=== PATIENT | male | born 2000 | race Two or more races ===

== ENCOUNTER 2022-11-04 11:11 | Emergency (ER) | payer OTHER ==
[~2022-11-04] VITALS: Ht 185.4 cm; Wt 116.1 kg
[2022-11-04 12:43] VITALS: BP 109/44; PULSE 53; RESP 14; TEMP 98.3; O2SAT 98
[2022-11-04] MEDS ORDERED: LIDOCAINE 1% HCL (LOCAL ANESTH.) INJ 20ML MDV IJ ONE (13:15)
== END 2022-11-04 13:39 | disposition home or self-care (01) ==
LOC: ER 11:11
DX: S61.411A Laceration without foreign body of right hand, initial encounter (principal); W26.0XXA Contact with knife, initial encounter; Y93.89 Activity, other specified; Y92.89 Other specified places as the place of occurrence of the external cause; Y99.8 Other external cause status
CPT/HCPCS: 12002; 99282; J2001

== ENCOUNTER 2024-10-05 07:42 | Inpatient (IN) | payer MEDICAID ==
[~2024-10-05] VITALS: Ht 185.4 cm; Wt 109.6 kg
--- NOTE | 2024-10-05 08:27 | ED.PDOC ---
History of Present Illness HPI Comments 24-year-old male came to the ER stating that he hit his head against a railing on the bus a week ago since then he has been having cough congestion dizziness nausea vomiting. His saturation on room air was 89% for which she was placed on 6 L oxygen which ryan to 95%. His blood sugar was 117. Denies any past medical surgical history. He does smoke cigarettes. Denies any other symptoms. Chief Complaint: Head Injury Time Seen by MD: 08:06 Primary Care Provider: NONE Reviewed Notes: Nurses Notes, Medications, Allergies Allergies: Coded Allergies: NO KNOWN ALLERGIES (Unverified , 11/04/22) Information Source: Patient Mode of Arrival: Ambulatory Severity: Moderate Timing: Days Duration: Since onset Past Medical History PAST MEDICAL HISTORY: Denies Surgical History: Denies all surgeries Family History Family History: Reviewed,noncontributory to illness Social History Smoker: Cigarettes Alcohol: Denies ETOH Use Drugs: Denies Drug Use Lives In: Home Constitutional: denies: chills, diaphoresis, fatigue, fever, malaise, sweats, weakness, others EENTM: denies: blurred vision, double vision, ear bleeding, ear discharge, ear drainage, ear pain, ear ringing, eye pain, eye redness, hearing loss, mouth pain, mouth swelling, nasal discharge, nose bleeding, nose congestion, nose pain, photophobia, tearing, throat pain, throat swelling, voice changes, others Respiratory: reports: cough; denies: hemoptysis, orthopnea, SOB at rest, shortness of breath, SOB with excertion, stridor, wheezing, others Cardiovascular: denies: chest pain, dizzy spells, diaphoresis, Dyspnea on exertion, edema, irregular heart beat, left arm pain, lightheadedness, palpitations, PND, syncope, others Gastrointestinal: reports: nausea, vomiting; denies: abdomen distended, abdominal pain, blood streaked bowels, constipated, diarrhea, dysphagia, difficulty swallowing, hematemesis, melena, poor appetite, poor fluid intake, rectal bleeding, rectal pain, others Genitourinary: denies: burning, dysuria, flank pain, frequency, hematuria, incontinence, penile discharge, penile sore, pain, testicle pain, testicle swelling, urgency, others Neurological: reports: dizziness; denies: fainting, headache, left sided numbness, left sided weakness, numbness, paresthesia, pre-existing deficit, right sided numbness, right sided weakness, seizure, speech problems, tingling, tremors, weakness, others Musculoskeletal: denies: back pain, gout, joint pain, joint swelling, muscle pain, muscle stiffness, neck pain, others Integumetry: denies: bruises, change in color, change in hair/nails, dryness, laceration, lesions, lumps, rash, wounds, others Allergic/Immunocompromised: denies: Difficulty Healing, Frequent Infections, Hives, Itching, others Hematologic/Lymphatic: denies: anemia, blood clots, easy bleeding, easy bruising, swollen glands, others Endocrine: denies: excessive hunger, excessive sweating, excessive thirst, excessive urination, flushing, intolerance to cold, intolerance to heat, unexplained weight gain, unexplained weight loss, others Psychiatric: denies: anxiety, bipolar disorder, depression, hopeless, panic disorder, schizophrenia, sleepless, suicidal, others Physical Exam General Appearance: Moderate Distress HEENT: Normal ENT Inspection, Pharynx Normal, TMs Normal Neck: Full Range of Motion, Non-Tender, Normal, Normal Inspection Respiratory: Other (Coarse breath sounds) Cardiovascular: No Edema, No JVD, No Murmur, No Gallop, Normal Peripheral Pulses, Regular Rate/Rhythm Breast Exam: Deferred Gastrointestinal: No Organomegaly, Non Tender, No Pulsatile Mass, Normal Bowel Sounds, Soft Genitalia: Deferred Pelvic: Deferred Rectal: Deferred Extremities: No calf tenderness, Normal capillary refill, Normal inspection, Normal range of motion, Non-tender, No pedal edema Musculoskeletal : Apperance: Normal Neurologic: Alert, surgical resident II-XII nml as Tested, No Motor Deficits, Normal Affect, Normal Mood, No Sensory Deficits Cerebellar Function: Normal Reflexes: Normal Skin: Dry, Normal Color, Warm Peripheral Pulses: 3+ Radial (R), 3+ Radial (L) Lymphatic: No Adenopathy Was a procedure done? Was a procedure done?: No Differential Dx Considerations may include: Pneumonitis Electrolyte imbalance X-Ray, Labs, Meds, VS Vital Signs Date Time Temp Pulse Resp B/P (MAP) Pulse Ox O2 Delivery O2 Flow Rate FiO2 10/05/24 09:04 84 22 93 Nasal Cannula* 2 28 10/05/24 08:46 98 16 98 Nasal Cannula 2.0 10/05/24 08:46 98.4 98 98 118/74 (89) 98 98.4 10/05/24 07:43 98.2 106 18 111/67 98.2 Lab Test 10/05/24 08:50 Range/Units White Blood Count 10.0 4.4-10.8 10^3/uL Red Blood Count 4.89 4.5-5.90 10^6/uL Hemoglobin 15.6 13.5-17.5 g/dL Hematocrit 43.8 41.0-53.0 % Mean Corpuscular Volume 89.5 80.0-100.0 fL Mean Corpuscular Hemoglobin 31.8 28.0-32.0 pg Mean Corpuscular Hemoglobin Concent 35.5 32.0-36.0 g/dL Red Cell Distribution Width 12.7 11.8-14.3 % Platelet Count 173 140-450 10^3/uL Mean Platelet Volume 8.7 6.9-10.8 fL Neutrophils (%) (Auto) 84.5 H 37.0-80.0 % Lymphocytes (%) (Auto) 6.8 L 10.0-50.0 % Monocytes (%) (Auto) 7.4 0.0-12.0 % Eosinophils (%) (Auto) 0.9 0.0-7.0 % Basophils (%) (Auto) 0.4 0.0-2.0 % Neutrophils # (Auto) 8.4 1.6-8.6 10 ^3/uL Lymphocytes # (Auto) 0.7 0.4-5.4 10 ^3/uL Monocytes # (Auto) 0.7 0-1.3 10 ^3/uL Eosinophils # (Auto) 0.1 0-0.8 10 ^3/uL Basophils # (Auto) 0 0-0.2 10 ^3/uL Nucleated Red Blood Cells 0.0 % Sodium Level 137 136-145 mmol/L Potassium Level 3.8 3.5-5.1 mmol/L Chloride Level 97 L 98-107 mmol/L Carbon Dioxide Level 30 20-31 mmol/L Anion Gap 10 5-15 Blood Urea Nitrogen 15 9-23 mg/dL Creatinine 1.42 H 0.700-1.30 mg/dL Glomerular Filtration Rate Calc 70 >90 mL/min BUN/Creatinine Ratio 10.6 10.0-20.0 Serum Glucose 116 H 74-106 mg/dL Calcium Level 9.1 8.7-10.4 mg/dL Current Medications Medications (Trade) Dose Ordered Sig/Capri Route Start Time Stop Time Status Last Admin Methylprednisolone Sodium Succinate (Solu Medrol) 125 mg ONCE ONCE IV 10/05/24 08:30 10/05/24 08:31 DC 10/05/24 09:01 Albuterol (Ventolin Medneb) 5 mg ONCE ONCE NEB 10/05/24 08:30 10/05/24 08:31 DC 10/05/24 08:56 Ipratropium [place] (Atrovent Medneb) 0.5 mg ONCE ONCE NEB 10/05/24 08:30 10/05/24 08:31 DC 10/05/24 08:56 Patient alert. Complaining of cough congestion dizziness nausea vomiting. Vitals stable. Answering questions. Placed on oxygen. Establish intravenous access. Was given steroid. Was given Rocephin. Was given azithromycin. Possible pneumonitis. Dizziness we will be addressed with CT scan of the head. Explained to the patient. Continue monitoring. [place] [address] Ph: [phone] DIAGNOSTIC IMAGING Diagnostic Imaging Report : [id number] Signed PATIENT: ROSENDO LUNA ACCT: [id number] UNIT: [id number] : 2000 LOC: ER ROOM / BED: / AGE / SEX: 24 / M ADM STATUS: REG ER SERVICE 6 ORDERING PHYSICIAN: TERI STRONG MD PROCEDURE(s): HWOCT - HEAD WITHOUT CONTRAST REASON: sob ORDER NUMBER(s): [id number], ACCESSION NUMBER(s): [id number] EXAM: CT HEAD WITHOUT CONTRAST INDICATION: sob TECHNIQUE: CT of the head without intravenous contrast. Radiation Dose : 1. Head: CT Dose: CTDI volume is 62.26 mGy. Dose-length product is 1226.84 mGy*cm The dose indicators for CT are the volume Computed Tomography (CT) Dose Index (CTDIvol) and the Dose Length Product (DLP), and are measured in units of mGy and mGy-cm, respectively. These indicators are not patient dose, but values generated from the CT scanner acquisition factors. The report includes radiation exposure data for exposures received during this examination. COMPARISON: None FINDINGS: There is no evidence of acute intracranial hemorrhage, extra-axial collection, mass effect, midline shift, herniation or hydrocephalus. The ventricles, sulci and cisterns are age appropriate. The james-white differentiation is intact. The visualized paranasal sinuses and mastoid air cells are clear. The surrounding soft tissues and osseous structures are unremarkable. IMPRESSION: No acute intracranial abnormality. Radiation optimization: All CT scans at this facility use at least one of these dose optimization techniques: automated exposure control mA and/or kV adjustment per patient size (includes targeted exams where dose is matched to clinical indication) or iterative reconstruction. ATED BY: DARRON FLORES MD DICTATED DATE/TIME: 10/05/24856 SIGNED BY: DARRON FLORES MD SIGNED DATE/TIME: 10/05/24856 CC: [place] [address] Ph: [phone] DIAGNOSTIC IMAGING Diagnostic Imaging Report : [id number] Signed PATIENT: ROSENDO LUNA ACCT: [id number] UNIT: [id number] : 2000 LOC: ER ROOM / BED: / AGE / SEX: 24 / M ADM STATUS: REG ER SERVICE 6 ORDERING PHYSICIAN: TERI STRONG MD PROCEDURE(s): CXRP - CHEST PORTABLE REASON: sob ORDER NUMBER(s): [id number], ACCESSION NUMBER(s): [id number] CHEST RADIOGRAPH Indication: sob Technique: Single frontal view of the chest was obtained COMPARISON: None FINDINGS: Lines and Tubes: None Lungs: Clear Pleura: No effusion. No pneumothorax. Cardiomediastinal contours: Unremarkable Bones: Unremarkable IMPRESSION: No acute disease. ATED BY: DARRON FLORES MD DICTATED DATE/TIME: 10/05/24858 SIGNED BY: DARRON FLORES MD SIGNED DATE/TIME: 10/05/24858 CC: Time of 1ST Reevaluation: 08:25 Reevaluation 1ST: Unchanged Patient Education/Counseling: Diagnosis, Treatment, Prognosis Family Education/Counseling: No Family Present SEPSIS Sepsis Screen Date sepsis recognized/suspect: Oct 05, 2024 Time Sepsis recognized/suspect: 751 Recent Procedure: No On Antibiotic Therapy: No Respiratory Rate >20: No Heart Rate >90: Yes Temp<36 C (96.8 F) or >38.3 C: No SBP <90 or MAP <65 mmHG: No New Acute Mental Status Change: No Is the patient on CPAP, BIPAP,: No Physician Orders Head Without Contrast (10/05/24 08:27) Chest Portable (10/05/24 08:27) Urinalysis (10/05/24 08:27) Sal[place] Lock (10/05/24 08:45) Vital Signs Date Time Temp Pulse Resp B/P (MAP) Pulse Ox O2 Delivery O2 Flow Rate FiO2 10/05/24 09:04 84 22 93 Nasal Cannula* 2 28 10/05/24 08:46 98 16 98 Nasal Cannula 2.0 10/05/24 08:46 98.4 98 98 118/74 (89) 98 98.4 10/05/24 07:43 98.2 106 18 111/67 98.2 Laboratory Tests Test 10/05/24 08:50 White Blood Count 10.0 10^3/uL (4.4-10.8) Medications Medications Dose Ordered Sig/Capri Route Start Time Stop Time Status Last Admin Dose Admin Albuterol 5 mg ONCE ONCE NEB 10/05/24 08:30 10/05/24 08:31 DC 10/05/24 08:56 Ipratropium [place] 0.5 mg ONCE ONCE NEB 10/05/24 08:30 10/05/24 08:31 DC 10/05/24 08:56 Methylprednisolone Sodium Succinate 125 mg ONCE ONCE IV 10/05/24 08:30 10/05/24 08:31 DC 10/05/24 09:01 Departure 1 Departure Time of Disposition: 08:26 Impression: Primary Impression: Pneumonitis Additional Impressions: Head injury Qualified Codes: S09.90XA - Unspecified injury of head, initial encounter Autonomic disorder Disposition: ADMITTED INPATIENT Admit to: Med Surg Condition: Guarded Critical Care Note Critical Care Time?: Yes (90 min-critical care time only) Critical care comment: Placed on oxygen Stability Stability form required: No Heart Score Heart Score: Heart Score Response (Comments) Value History N/A 0 EKG N/A 0 Age N/A 0 Risk Factors N/A 0 Troponin N/A 0 Total 0 I personally scribed for TERI STRONG MD ([email or web address]) on 10/05/24 at 09:40. Electronically submitted by Krystyna Rivas ([email or web address]). I personally scribed for TERI STRONG MD ([email or web address]) on 10/05/24 at 09:41. Electronically submitted by Krystyna Rivas ([email or web address]). TERI STRONG MD Oct 05, 2024 08:27
[2024-10-05] MEDS: ALBUTEROL SULF 2.5 MG/0.5ML(0.5%) NEB SOLN NEB ONE (08:56)
[2024-10-05] MEDS: IPRATROPIUM BROM 0.5 MG/2.5ML INH SOL NEB ONE (08:56)
--- NOTE | 2024-10-05 08:59 | DVH ---
EXAM: CT HEAD WITHOUT CONTRAST INDICATION: sob TECHNIQUE: CT of the head without intravenous contrast. Radiation Dose : 1. Head: CT Dose: CTDI volume is 62.26 mGy. Dose-length product is 1226.84 mGy*cm The dose indicators for CT are the volume Computed Tomography (CT) Dose Index (CTDIvol) and the Dose Length Product (DLP), and are measured in units of mGy and mGy-cm, respectively. These indicators are not patient dose, but values generated from the CT scanner acquisition factors. The report includes radiation exposure data for exposures received during this examination. COMPARISON: None FINDINGS: There is no evidence of acute intracranial hemorrhage, extra-axial collection, mass effect, midline s hift, herniation or hydrocephalus. The ventricles, sulci and cisterns are age appropriate. The james-white differentiation is intact. The visualized paranasal sinuses and mastoid air cells are clear. The surrounding soft tissues and osseous structures are unremarkable. IMPRESSION: No acute intracranial abnormality. Radiation optimization: All CT scans at this facility use at least one of these dose optimization cristy hniques: automated exposure control mA and/or kV adjustment per patient size (includes targeted exam s where dose is matched to clinical indication) or iterative reconstruction.
[2024-10-05 09:00] LABS: Hematocrit 43.8 % (41.0-53.0); Hemoglobin 15.6 g/dL (13.5-17.5); Mean Corpuscular Hemoglobin 31.8 pg (28.0-32.0); Mean Corpuscular Volume 89.5 fL (80.0-100.0); Nucleated Red Blood Cells % 0.0 %
[2024-10-05] MEDS: methylPREDNISolone SOD SUCC 125 MG/2 ML VL IV ONE (09:01)
--- NOTE | 2024-10-05 09:01 | DVH ---
CHEST RADIOGRAPH Indication: sob Technique: Single frontal view of the chest was obtained COMPARISON: None FINDINGS: Lines and Tubes: None Lungs: Clear Pleura: No effusion. No pneumothorax. Cardiomediastinal contours: Unremarkable Bones: Unremarkable IMPRESSION: No acute disease.
[2024-10-05 09:04] VITALS: PULSE 84; RESP 22; O2SAT 93
[2024-10-05 09:29] LABS: Potassium 3.8 mmol/L (3.5-5.1); Sodium 137 mmol/L (136-145)
[2024-10-05 09:30] LABS: Anion Gap 10 (5-15); Calcium 9.1 mg/dL (8.7-10.4); Carbon Dioxide 30 mmol/L (20-31)
[2024-10-05 09:35] LABS: BUN/Creatinine Ratio 10.6 (10.0-20.0); Blood Urea Nitrogen 15 mg/dL (9-23)
[2024-10-05 09:38] LABS: Chloride 97 mmol/L (98-107); Glucose 116 mg/dL (74-106)
--- NOTE | 2024-10-05 12:39 | DVHHP2 ---
History of Present Illness Reason for Visit: headache dizziness cough and weakness History of Present Illness 24-year-old male with no past medical or surgical history presents stating concern for a possible concussion. 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 He did not seek medical evaluation at the time and has not followed up since. Recently, he has been experiencing intermittent headaches, vomiting, difficulty concentrating, balance disturbances, and a throbbing/pulsing head sensation. He reports that he hasnt been the same since the injury. He also reports a cough for the past seven days with associated nasal congestion. On arrival to the ED, oxygen saturation was 89% on room air, which improved after being placed on 6 L nasal cannula. Chest X-ray was unremarkable. CT scan of the brain was negative for acute findings. He received albuterol treatment in the ED prior to admission. Laboratory workup revealed an unremarkable CBC, unremarkable CMP except for creatinine 1.42. Patient reports smoking cigarettes and cigars approximately once daily. He is active-duty . He denies illicit drug use. will admit for further workup Past Medical History See HPI above Past Surgical History See HPI above Family History Reviewed, non-contributory to the management of this case. Past Social History Patient does smoke cigar but denies drug or alcohol use or cigarette use Review of Systems Constitutional: No: Fever, Chills, Sweats, Weakness, Malaise, Other Eyes: No: Pain, Vision change, Conjunctivae inflammation, Eyelid inflammation, Other, Redness ENT: No: Ear pain, Ear discharge, Nose pain, Nose discharge, Nose congestion, M outh pain, Mouth swelling, Throat pain, Throat swelling, Other Respiratory: Cough, Shortness of breath; No: Dry, SOB with excertion, Wheezing, Hemoptysis, Pleuritic Pain, Sputum, Wheezing, Other Cardiovascular: No: Chest Pain, Palpitations, Orthopnea, Paroxysmal Noc. Dyspnea, Edema, Lt Headedness, Other Gastrointestinal: No: Nausea, Vomiting, Abdominal Pain, Diarrhea, Constipation, Melena, Hematochezia, Other Genitourinary: No Dysuria, No Frequency, No Incontinence, No Hematuria, No Retention, No Other Musculoskeletal: No: other, neck pain, shoulder pain, arm pain, back pain, hand pain, leg pain, foot pain Skin: No: Rash, Lesions, Jaundice, Bruising, Other Neurological: Other (Headache); No: Weakness, Numbness, Incoordination, Change in speech, Confusion, Seizures Allergies: Coded Allergies: NO KNOWN ALLERGIES (Unverified , 11/04/22) Exam Vital Signs Vital Signs Date Time Temp Pulse Resp B/P (MAP) Pulse Ox O2 Delivery O2 Flow Rate FiO2 10/05/24 09:04 84 22 93 Nasal Cannula* 2 28 10/05/24 08:46 98.4 118/74 (89) 98.4 General Appearance: Alert, Oriented X3, Cooperative, No acute distress HEENT: Atraumatic, PERRLA, EOMI, Mucous membr. moist/pink Respiratory: Normal air movement, Other (Diminished lung sounds throughout) Cardiovascular: Regular rate, Normal S1, Normal S2, No murmurs Abdominal: Normal bowel sounds, Soft, No tenderness, No hepatospenomegaly, No masses Extremities: No clubbing, No cyanosis, No edema, Normal pulses, No tenderness/swelling Skin: No rashes, No breakdown, No significant lesion Neuro: Other (Neuro nonfocal) Psych/Mental Status: Mental status NL, Mood NL Labs/Xrays CT scan of the brain unremarkable Chest x-ray unremarkable I reviewed labs, imaging CT scan abdomen pelvis, EKG and all diagnostic studies on this patient from ED records and the medical chart Labs Test 10/05/24 08:50 10/05/24 08:45 Range/Units White Blood Count 10.0 4.4-10.8 10^3/uL Red Blood Count 4.89 4.5-5.90 10^6/uL Hemoglobin 15.6 13.5-17.5 g/dL Hematocrit 43.8 41.0-53.0 % Mean Corpuscular Volume 89.5 80.0-100.0 fL Mean Corpuscular Hemoglobin 31.8 28.0-32.0 pg Mean Corpuscular Hemoglobin Concent 35.5 32.0-36.0 g/dL Red Cell Distribution Width 12.7 11.8-14.3 % Platelet Count 173 140-450 10^3/uL Mean Platelet Volume 8.7 6.9-10.8 fL Neutrophils (%) (Auto) 84.5 H 37.0-80.0 % Lymphocytes (%) (Auto) 6.8 L 10.0-50.0 % Monocytes (%) (Auto) 7.4 0.0-12.0 % Eosinophils (%) (Auto) 0.9 0.0-7.0 % Basophils (%) (Auto) 0.4 0.0-2.0 % Neutrophils # (Auto) 8.4 1.6-8.6 10 ^3/uL Lymphocytes # (Auto) 0.7 0.4-5.4 10 ^3/uL Monocytes # (Auto) 0.7 0-1.3 10 ^3/uL Eosinophils # (Auto) 0.1 0-0.8 10 ^3/uL Basophils # (Auto) 0 0-0.2 10 ^3/uL Nucleated Red Blood Cells 0.0 % Sodium Level 137 136-145 mmol/L Potassium Level 3.8 3.5-5.1 mmol/L Chloride Level 97 L 98-107 mmol/L Carbon Dioxide Level 30 20-31 mmol/L Anion Gap 10 5-15 Blood Urea Nitrogen 15 9-23 mg/dL Creatinine 1.42 H 0.700-1.30 mg/dL Glomerular Filtration Rate Calc 70 >90 mL/min BUN/Creatinine Ratio 10.6 10.0-20.0 Serum Glucose 116 H 74-106 mg/dL Calcium Level 9.1 8.7-10.4 mg/dL SEPSIS Sepsis Screen Date sepsis recognized/suspect: Oct 05, 2024 Time Sepsis recognized/suspect: 0752 Recent Procedure: No On Antibiotic Therapy: No Respiratory Rate >20: No Heart Rate >90: Yes Temp<36 C (96.8 F) or >38.3 C: No SBP <90 or MAP <65 mmHG: No New Acute Mental Status Change: No Is the patient on CPAP, BIPAP,: No Physician Orders Head Without Contrast (10/05/24 08:27) Chest Portable (10/05/24 08:27) Urinalysis (10/05/24 08:27) Saline Lock (10/05/24 08:45) Brain Head Wo Contrast (10/05/24 12:32) * Neurology Consult (10/05/24 12:32) Neuro Checks Q2hrs Q2HR (10/05/24 12:32) Admit (10/05/24 12:32) Allergies (10/05/24 12:32) Code Status (10/05/24 12:32) Sodium Chloride 0.9% (10/05/24 12:45) Ondansetron Hcl (Zofran) (10/05/24 12:45) Docusate Sodium Capsule (Colace Capsule) (10/05/24 12:45) Complete Blood Count (10/06/24 04:00) Comprehensive Metabolic Panel (10/06/24 04:00) Condition: Stable (10/05/24 12:32) BRP (10/05/24 12:32) Morphine Sulfate Injection (10/05/24 12:45) Sequential Compression Device (10/05/24 ) Nitroglycerin Sublingual (Ntrostat Subli (10/05/24 12:45) Stat Ekg For Chest Pain (10/05/24 12:32) Notify Of Changes From Base (10/05/24 12:32) Pick Up Worker For 24 Hours (10/05/24 12:32) Emergency Dysrhythmia Protocol (10/05/24 12:32) Rhythm Strips Once Every Shift (10/05/24 12:32) Oxygen By Nasal Cannula (10/05/24 12:32) D-Dimer (10/05/24 12:32) Nm Vq Scan (10/05/24 12:32) Abg W/ Co-Ox (10/05/24 12:32) Albuterol Medneb (Ventolin Medneb) (10/05/24 12:45) Ipratropium Medneb (Atrovent Medneb) (10/05/24 12:45) Cont Med Neb Intial Tx (10/05/24 12:32) Urine Sodium (10/05/24 12:32) Urine Creatinine (10/05/24 12:32) Ct Angio Chest Contrast (10/05/24 12:37) Vital Signs Date Time Temp Pulse Resp B/P (MAP) Pulse Ox O2 Delivery O2 Flow Rate FiO2 10/05/24 09:04 84 22 93 Nasal Cannula* 2 28 10/05/24 08:46 98 16 98 Nasal Cannula 2.0 10/05/24 08:46 98.4 98 98 118/74 (89) 98 98.4 10/05/24 07:43 98.2 106 18 111/67 98.2 Laboratory Tests Test 10/05/24 08:50 White Blood Count 10.0 10^3/uL (4.4-10.8) Medications Medications Dose Ordered Sig/Capri Route Start Time Stop Time Status Last Admin Dose Admin Albuterol 5 mg ONCE ONCE NEB 10/05/24 08:30 10/05/24 08:31 DC 10/05/24 08:56 5 MG Ipratropium [place] 0.5 mg ONCE ONCE NEB 10/05/24 08:30 10/05/24 08:31 DC 10/05/24 08:56 0.5 MG Methylprednisolone Sodium Succinate 125 mg ONCE ONCE IV 10/05/24 08:30 10/05/24 08:31 DC 10/05/24 09:01 125 MG Assessment/Plan Assessment/Plan 24-year-old male withHead injury with post-concussive symptoms and hypoxemia requiring further neurological evaluation and MRI of the brain. acute Head Injury with Post-Concussion Syndrome Order MRI brain without contrast fu results ordered Neurology consult for evaluation and management recommendations Neuro checks q4h Pain management with acetaminophen PRN and morphine; avoid NSAIDs until intracranial bleed definitively excluded Activity modification, avoid contact activities until cleared acute Hypoxemia cxr normal ordered ct angio fu results Continue supplemental O2 to maintain SpO2 > 94% Wean as tolerated Incentive spirometry Monitor for respiratory deterioration ordered solumedrol atc ordered albuterol/atrovent prn sob and atc ordered abg Acute Cough / Congestion possible viral bronchitis vs mild asthma exacerbation Continue albuterol inhaler PRN and atc Supportive care: hydration, rest, nasal saline spray Consider outpatient pulmonary function testing if symptoms persist ordered solumedrol atc ordered ceftriaxone and azithromax acute Elevated Creatinine possible mild LUIS vs baseline Monitor renal function daily Encourage oral hydration Avoid nephrotoxic agents ordered renal consult if no improvement CHRONIC PROBLEM LIST Tobacco use with cigars FEN / PPx Fluids: Encourage oral hydration; IV fluids Electrolytes: Monitor daily, replace as indicated Nutrition: Regular diet DVT Prophylaxis: Enoxaparin 40 mg SC daily (hold if contraindicated) GI Prophylaxis: protonix since no steriods Disposition: Admit for MRI brain, neurology evaluation, supplemental oxygen, and monitoring of neurological status. Discharge once stable, oxygen requirements resolved, and cleared by neurology. Plan discussed with: Patient My Orders Orders - RICCARDO MOLINA DNP Procedure Category Date Status Time Brain Head Wo Contrast MRI 10/05/24 Logged 12:32 * Neurology Consult CONS 10/05/24 Transmitted 12:32 Neuro Checks Q2hrs GAYATRI 10/05/24 In Process 12:32 Admit ADMIT 10/05/24 Transmitted 12:32 Allergies GAYATRI 10/05/24 In Process 12:32 Code Status CODE 10/05/24 Transmitted 12:32 Sodium Chloride 0.9% PHA 10/05/24 Logged 12:45 Ondansetron Hcl PHA 10/05/24 Logged (Zofran) 12:45 Docusate Sodium PHA 10/05/24 Logged Capsule (Colace 12:45 Complete Blood Count LAB 10/06/24 Verified 04:00 Comprehensive LAB 10/06/24 Verified Metabolic Panel 04:00 Condition: Stable GAYATRI 10/05/24 In Process 12:32 BRP GAYATRI 10/05/24 In Process 12:32 Morphine Sulfate PHA 10/05/24 Logged Injection 12:45 Sequential GAYATRI 10/05/24 In Process Compression Device Nitroglycerin PHA 10/05/24 Logged Sublingual (Ntrostat 12:45 Stat Ekg For Chest GAYATRI 10/05/24 In Process Pain 12:32 Notify Of Changes [facility] 10/05/24 In Process From Base 12:32 Pick Up Worker For [facility] 10/05/24 In Process 24 Hours 12:32 Emergency Dysrhythmia [facility] 10/05/24 In Process Protocol 12:32 Rhythm Strips Once [facility] 10/05/24 In Process Every Shift 12:32 Oxygen By Nasal RT 10/05/24 Transmitted Cannula 12:32 D-Dimer LAB 10/05/24 Logged 12:32 Nm Vq Scan NM 10/05/24 Logged 12:32 Abg W/ Co-Ox RT 10/05/24 Logged 12:32 Albuterol Medneb PHA 10/05/24 Logged (Ventolin Medneb) 12:45 Ipratropium Medneb PHA 10/05/24 Logged (Atrovent Medneb) 12:45 Cont Med Neb Intial Tx RT 10/05/24 Logged 12:32 Urine Sodium LAB 10/05/24 Logged 12:32 Urine Creatinine LAB 10/05/24 Logged 12:[address] 10/05/24 Logged Contrast 12:37 Date of Service: Oct 05, 2024 Billing Provider: RICCARDO MOLINA DNP Common Visit Codes: [id number] INP/OBS CARE (HIGH) RICCARDO MOLINA [facility] Oct 05, 2024 12:39
[2024-10-05 12:40] LABS: Urine Protein, UAD 1+ (Negative)
[2024-10-05] MEDS ORDERED: IPRATROPIUM BROM 0.5 MG/2.5ML INH SOL NEB PRN (12:45)
[2024-10-05] MEDS ORDERED: MORPHINE SULFATE INJ 2 MG/ml SYRG IV PRN (12:45)
[2024-10-05] MEDS ORDERED: ALBUTEROL SULF 2.5 MG/0.5ML(0.5%) NEB SOLN NEB PRN (12:45)
[2024-10-05] MEDS ORDERED: ONDANSETRON HCL 4 MG/2 ML VIAL IV PRN (12:45)
[2024-10-05] MEDS ORDERED: DOCUSATE SOD 100 MG CAP PO PRN (12:45)
[2024-10-05] MEDS: IOHEXOL 350 MG/ML 100ML IJ ONE (12:45)
[2024-10-05] MEDS ORDERED: NITROGLYCERIN 0.4 MG SL TAB SL PRN (12:45)
[2024-10-05] MEDS: SODIUM CHLORIDE 0.9% 1,000 ML IV SCH (12:45)
[2024-10-05 13:45] LABS: Base Excess 1.4 mmol/L (-2.0-3.0)
[2024-10-05 13:57] VITALS: BP 118/74; PULSE 84; RESP 18; TEMP 94.1; O2SAT 94
--- NOTE | 2024-10-05 13:58 | DVH ---
CTA Chest with intravenous contrast INDICATION: eval for pe COMPARISON: XY CHEST PORTABLE on DOS: 10/05/24 TECHNIQUE: Multidetector spiral CTA of the chest was performed of the chest with intravenous contrast . PULMONARY ANGIOGRAPHY PROTOCOL was utilized using a bolus-tracking technique centered on the main p ulmonary artery. Axial, coronal and sagittal multiplanar and MIP reformats were performed. CONTRAST: Type of contrast: Omni 350 Contrast injected: 100 ml Radiation dose : Chest: CTDI volume is 26 mGy. Dose-length product is 948 mGy*cm The dose indicators for CT are the volume computed Tomography (CT) dose Index (CTDIvol) and the dose Length product (DLP), and are measured in units of mGy and mGy-cm, respectively. These indicators are not patient dose, but values generated from the CT scanner acquisition factors. The report includes radiation exposure data for exposures received during this examination. Findings: Pulmonary artery: No pulmonary embolism Lower neck: Normal thyroid. Lungs: Patchy ground-glass opacities in the mid to lower lungs bilaterally. Heart/Vascular Structures: Normal heart size. No pericardial effusion. Lymph Nodes: Mediastinal and bilateral hilar lymphadenopathy. Pleura: No pleural effusion or significant pneumothorax. Musculoskeletal: No acute osseous abnormality. Soft tissues: Normal. Upper abdomen: Limited portions of the upper abdomen are unremarkable. IMPRESSION: 1. No pulmonary embolism. 2. Patchy ground-glass opacities in the mid to lower lungs bilaterally. Mediastinal and bilateral hi lar lymphadenopathy. Findings could be infectious / inflammatory. Consider sarcoidosis. Consider at ypical infection. Clinical correlation and continued follow-up is recommended. HS:Y
--- NOTE | 2024-10-05 14:09 | DVH ---
MR of the brain HISTORY: eval for acute headache s/p injury with dizziness and balanc Comparison: CT head done 10/05/2024 TECHNIQUE: MR was performed with a surface coil at 1.5 T magnet. Sagittal, axial and coronal T1 and T 2-weighted images were obtained. FINDINGS: No areas of restricted diffusion on diffusion-weighted images No areas of signal hyperintensity on FLAIR imaging sequences No areas of T2 star signal hypointensity on gradient echo images No hydrocephalus or midline shift No extra-axial fluid collections The orbits, paranasal sinuses, sella, and cerebellopontine angles are all unremarkable in appearance. There is some mucosal thickening or fluid in the left mastoid sinus air cells IMPRESSION: 1. No acute intracranial pathology. 2. There is some left mastoid sinus disease present.
[2024-10-05] MEDS: PANTOPRAZOLE 40 MG/10 ML VIAL INJ IV ONE (18:01)
[2024-10-05] MEDS: cefTRIAXone 1GM/50ML D5W 50 ML IV ONE (18:01)
[2024-10-05] MEDS: AZITHROMYCIN 500MG/ 250ML 250 ML IV ONE (18:16)
[2024-10-05 18:43] VITALS: PULSE 83; RESP 18; O2SAT 95
[2024-10-05] MEDS: ALBUTEROL SULF 2.5 MG/0.5ML(0.5%) NEB SOLN NEB PRN (18:43)
[2024-10-05] MEDS: IPRATROPIUM BROM 0.5 MG/2.5ML INH SOL NEB SCH (18:43)
[2024-10-05 18:47] LABS: COVID19 ANTIGEN SOFIA FIA NEGATIVE (NEGATIVE)
[2024-10-05 18:51] VITALS: PULSE 86; RESP 18; O2SAT 98
--- NOTE | 2024-10-05 21:24 | DVHINCON2 ---
Date of service: Oct 05, 2024 Referring Physician Yanique Reason for Consultation Acute headache dizziness and balance disturbance after head injury History of Present Illness 10/05/24 24-year-old male came to the ER stating that he hit his head against a railing on the bus a week ago since then he has been having cough congestion dizziness nausea vomiting. His saturation on room air was 89% for which she was placed on 6 L oxygen which ryan to 95%. His blood sugar was 117. Denies any past medical surgical history. He does smoke cigarettes. Denies any other symptoms. Chief Complaint: Head Injury Urinalysis, 10/05/2024: WBC: Two, urine leukocyte esterase: Negative ABG, 10/05/2024: Respiratory alkalosis CBC, 10/05/2024: Unremarkable BUN/CR, 10/05/2024: 15/1.42 GFR, 10/05/2024: 70 CT head, 10/05/2024: No acute intracranial abnormality. CTA chest, 10/05/2024: 1. No pulmonary embolism. 2. Patchy ground-glass opacities in the mid to lower lungs bilaterally. Mediastinal and bilateral hilar lymphadenopathy. Findings could be infectious / inflammatory. Consider sarcoidosis. Consider atypical infection. Clinical correlation and continued follow-up is recommended. MRI head, 10/05/2024: 1. No acute intracranial pathology. 2. There is some left mastoid sinus disease present Denies Denies all surgeries Reviewed,noncontributory to illness Smoker: Cigarettes Alcohol: Denies ETOH Use Drugs: Denies Drug Use Lives In: Home Allergies: Coded Allergies: NO KNOWN ALLERGIES (Unverified , 11/04/22) Current Medications Current Medications Medications (Trade) Dose Ordered Sig/Capri Route PRN Reason Start Time Stop Time Status Last Admin Sodium Chloride 1,000 ml @ 120 mls/hr Q8H20M IV 10/05/24 12:45 Ondansetron HCl (Zofran) 4 mg Q4HP PRN IV NAUSEA / VOMITING 10/05/24 12:45 Docusate Sodium (Colace Capsule) 100 mg BIDPRN PRN PO FOR CONSTIPATION 10/05/24 12:45 Morphine Sulfate 2 mg Q4HPRN PRN IV SEVERE PAIN (7-10 PAIN SCALE) 10/05/24 12:45 Nitroglycerin (Ntrostat Sublingual) 0.4 mg Q5MINP PRN SL FOR CHEST PAIN 10/05/24 12:45 Albuterol (Ventolin Medneb) 2.5 mg Q4HPRN PRN NEB SHORTNESS OF BREATH 10/05/24 12:45 10/05/24 17:58 DC Ipratropium [place] (Atrovent Medneb) 0.5 mg Q4HPRN PRN NEB SHORTNESS OF BREATH 10/05/24 12:45 10/05/24 17:58 DC Methylprednisolone Sodium Succinate (Solu Medrol) 40 mg Q8HR IV 10/05/24 22:00 Pantoprazole Sodium (Protonix) 40 mg DAILY IV 10/06/24 10:00 Albuterol (Ventolin Medneb) 2.5 mg Q4HPRN PRN NEB SHORTNESS OF BREATH 10/05/24 17:30 10/05/24 18:43 Ipratropium [place] (Atrovent Medneb) 0.5 mg Q4HR NEB 10/05/24 18:00 10/05/24 18:43 Ceftriaxone Sodium 50 ml @ 100 mls/hr DAILY@09 IV 10/06/24 09:00 Azithromycin 250 ml @ 125 mls/hr DAILY IV 10/06/24 10:00 Vital Signs Vital Signs Date Time Temp Pulse Resp B/P (MAP) Pulse Ox O2 Delivery O2 Flow Rate FiO2 10/05/24 20:12 98.1 89 20 107/61 (76) 95 98.1 10/05/24 18:43 Nasal Cannula* 2 28 Labs/Diagnostic Data Labs Test 10/05/24 17:35 10/05/24 13:07 10/05/24 12:13 10/05/24 08:50 Range/Units Influenza Type A Antigen Negative Negative Influenza Type B Antigen Negative Negative SARS-CoV-2 Antigen (Rapid) Negative NEGATIVE Blood Gas Specimen Type Arterial Blood Gas Sample Site Left radial Blood Gas Patient Temperature 37.0 Arterial Blood Date Drawn [id number] Arterial Blood pH 7.491 H 7.350-7.450 Arterial Blood Partial Pressure CO2 32.0 L 35.0-48.0 mmHg Arterial Blood Partial Pressure O2 69.2 L 83.0-108.0 mmHg Arterial Blood HCO3 23.9 21.0-28.0 mmol/L Arterial Blood Oxygen Saturation 94.1 94.0-98.0 % Arterial Blood Base Excess 1.4 -2.0-3.0 mmol/L Arterial Blood Oxyhemoglobin 92.7 L 94.0-98.0 % Arterial Blood Carboxyhemoglobin 0.9 0.5-1.5 % Arterial Blood Methemoglobin 0.6 0.0-1.5 % Atilio Test Yes Blood Gas Total Hemoglobin 15.30 13.5-17.5 g/dL Blood Gas Modality Room air FiO2 % 21.0 Blood Gas Comments D-Dimer, Quantitative 1.02 H 0.0-0.49 mg/L FEU White Blood Count 10.0 4.4-10.8 10^3/uL Red Blood Count 4.89 4.5-5.90 10^6/uL Hemoglobin 15.6 13.5-17.5 g/dL Hematocrit 43.8 41.0-53.0 % Mean Corpuscular Volume 89.5 80.0-100.0 fL Mean Corpuscular Hemoglobin 31.8 28.0-32.0 pg Mean Corpuscular Hemoglobin Concent 35.5 32.0-36.0 g/dL Red Cell Distribution Width 12.7 11.8-14.3 % Platelet Count 173 140-450 10^3/uL Mean Platelet Volume 8.7 6.9-10.8 fL Neutrophils (%) (Auto) 84.5 H 37.0-80.0 % Lymphocytes (%) (Auto) 6.8 L 10.0-50.0 % Monocytes (%) (Auto) 7.4 0.0-12.0 % Eosinophils (%) (Auto) 0.9 0.0-7.0 % Basophils (%) (Auto) 0.4 0.0-2.0 % Neutrophils # (Auto) 8.4 1.6-8.6 10 ^3/uL Lymphocytes # (Auto) 0.7 0.4-5.4 10 ^3/uL Monocytes # (Auto) 0.7 0-1.3 10 ^3/uL Eosinophils # (Auto) 0.1 0-0.8 10 ^3/uL Basophils # (Auto) 0 0-0.2 10 ^3/uL Nucleated Red Blood Cells 0.0 % Sodium Level 137 136-145 mmol/L Potassium Level 3.8 3.5-5.1 mmol/L Chloride Level 97 L 98-107 mmol/L Carbon Dioxide Level 30 20-31 mmol/L Anion Gap 10 5-15 Blood Urea Nitrogen 15 9-23 mg/dL Creatinine 1.42 H 0.700-1.30 mg/dL Glomerular Filtration Rate Calc 70 >90 mL/min BUN/Creatinine Ratio 10.6 10.0-20.0 Serum Glucose 116 H 74-106 mg/dL Calcium Level 9.1 8.7-10.4 mg/dL Test 10/05/24 08:45 Range/Units Urine Color Yellow Yellow Urine Clarity Clear Clear Urine pH 6.0 5.0-9.0 Urine Specific [place] 1.034 1.001-1.035 Urine Protein 1+ H Negative Urine Ketones 1+ H Negative Urine Blood 1+ H Negative /uL Urine Nitrite Negative Negative Urine Bilirubin Negative Negative Urine Urobilinogen Normal Negative mg/dL Urine Leukocyte Esterase Negative Negative /uL Urine RBC 12 0 - 3 /hpf Urine Microscopic WBC 2 0-3 /HPF Urine Squamous Epithelial Cells None seen <5 /hpf Urine Bacteria None seen None Seen /hpf Urine Mucus Few None Seen Urine Creatinine 439.90 H 30.0-125.0 mg/dL Urine Sodium < 10 L 40-220 mmol/L Urine Glucose Normal Normal mg/dL OBED RUGGIERO MD Oct 05, 2024 21:24
[2024-10-05 23:49] VITALS: BP 111/67; PULSE 72; RESP 20; TEMP 97.8; O2SAT 98
[2024-10-06] VITALS (23 sets, daily range): BP systolic 103–125; BP diastolic 49–73; PULSE 48–101; RESP 16–20; TEMP 97.1–98.1; O2SAT 91–100
[2024-10-06 06:11] LABS: Hematocrit 38.6 % (41.0-53.0); Hemoglobin 13.9 g/dL (13.5-17.5); Mean Corpuscular Hemoglobin 32.9 pg (28.0-32.0); Mean Corpuscular Volume 91.0 fL (80.0-100.0); Nucleated Red Blood Cells % 0.0 %
[2024-10-06 06:26] LABS: Albumin 4.3 g/dL (3.2-4.8); Alkaline Phosphatase 66 U/L (46-116); Anion Gap 9 (5-15); BUN/Creatinine Ratio 18.8 (10.0-20.0); Bilirubin, Direct 0.2 mg/dL (<0.3); Bilirubin, Total 0.6 mg/dL (0.2-1.0); Blood Urea Nitrogen 21 mg/dL (9-23); Calcium 8.9 mg/dL (8.7-10.4); Carbon Dioxide 28 mmol/L (20-31); Chloride 101 mmol/L (98-107); Potassium 3.9 mmol/L (3.5-5.1); Sodium 138 mmol/L (136-145); Total Protein 6.8 g/dL (5.7-8.2)
[2024-10-06 06:28] LABS: Alanine Aminotransferase < 9 U/L (7-40); Glucose 150 mg/dL (74-106)
[2024-10-06] MEDS: PANTOPRAZOLE 40 MG/10 ML VIAL INJ IV SCH (08:55)
[2024-10-06] MEDS: cefTRIAXone 1GM/50ML D5W 50 ML IV SCH (08:55)
[2024-10-06] MEDS: AZITHROMYCIN 500MG/ 250ML 250 ML IV SCH (10:22)
--- NOTE | 2024-10-06 12:01 | DVHPN2 ---
Reviewed: Care Plan, H&P, Labs, Medications, Previous Orders, Radiology Changes from previous H/P or p: No Changes Eyes: No Pain, No Vision change, No Conjunctivae inflammation, No Eyelid inflammation, No Other, No Redness ENT: No Ear pain, No Ear discharge, No Nose pain, No Nose discharge, No Nose congestion, No Mouth pain, No Mouth swelling, No Throat pain, No Throat swelling, No Other Cardiovascular: No Chest Pain, No Palpitations, No Orthopnea, No Paroxysmal Noc. Dyspnea, No Edema, No Lt Headedness, No Other Respiratory: Cough; No Dry; Shortness of breath; No SOB with excertion, No Wheezing, No Hemoptysis, No Pleuritic Pain, No Sputum, No Other Gastrointestinal: No Nausea, No Vomiting, No Abdominal Pain, No Diarrhea, No Constipation, No Melena, No Hematochezia, No Other Genitourinary: No Dysuria, No Frequency, No Incontinence, No Hematuria, No Retention, No Other Musculoskeletal: No other, No neck pain, No shoulder pain, No arm pain, No back pain, No hand pain, No leg pain, No foot pain Skin: No Rash, No Lesions, No Jaundice, No Bruising, No Other Objective Vitals Vital Signs Date Time Temp Pulse Resp B/P (MAP) Pulse Ox O2 Delivery O2 Flow Rate FiO2 10/06/24 09:59 49 16 98 10/06/24 09:00 97.4 125/69 (87) 97.4 10/06/24 06:29 Nasal Cannula 2.0 10/06/24 06:29 28 Intake/Output Intake and Output 10/06/24 07:00 Intake Total 0 ml Balance 0 ml Intake Oral 0 ml Medications Current Medications Medications Dose Ordered Sig/Capri Route Start Time Stop Time Status Last Admin Dose Admin Sodium Chloride 1,000 ml @ 120 mls/hr Q8H20M IV 10/05/24 12:45 Ondansetron HCl 4 mg Q4HP PRN IV 10/05/24 12:45 Docusate Sodium 100 mg BIDPRN PRN PO 10/05/24 12:45 Morphine Sulfate 2 mg Q4HPRN PRN IV 10/05/24 12:45 Nitroglycerin 0.4 mg Q5MINP PRN SL 10/05/24 12:45 Methylprednisolone Sodium Succinate 40 mg Q8HR IV 10/05/24 22:00 Pantoprazole Sodium 40 mg DAILY IV 10/06/24 10:00 10/06/24 08:55 40 MG Albuterol 2.5 mg Q4HPRN PRN NEB 10/05/24 17:30 10/06/24 09:58 2.5 MG Ipratropium [place] 0.5 mg Q4HR NEB 10/05/24 18:00 10/06/24 09:58 0.5 MG Ceftriaxone Sodium 50 ml @ 100 mls/hr DAILY@09 IV 10/06/24 09:00 10/06/24 08:55 100 MLS/HR Azithromycin 250 ml @ 125 mls/hr DAILY IV 10/06/24 10:00 10/06/24 10:22 125 MLS/HR Laboratory Results Laboratory Tests 10/06/24 05:32 Chemistry Test 10/06/24 05:32 Albumin 4.3 g/dL (3.2-4.8) Calcium Level 8.9 mg/dL (8.7-10.4) Total Protein 6.8 g/dL (5.7-8.2) Coagulation Test 10/05/24 12:13 D-Dimer, Quantitative 1.02 mg/L FEU (0.0-0.49) H LFT Test 10/06/24 05:32 Alanine Aminotransferase (ALT) < 9 U/L (7-40) Alkaline Phosphatase 66 U/L (46-116) Aspartate Amino Transferase (AST) 14 U/L (13-40) Direct Bilirubin 0.2 mg/dL (<0.3) Total Bilirubin 0.6 mg/dL (0.2-1.0) Urinalysis Test 10/05/24 08:45 Urine Color Yellow (Yellow) Urine Clarity Clear (Clear) Urine pH 6.0 (5.0-9.0) Urine Specific [place] 1.034 (1.001-1.035) Urine Protein 1+ (Negative) H Urine Ketones 1+ (Negative) H Urine Blood 1+ /uL (Negative) H Urine Nitrite Negative (Negative) Urine Bilirubin Negative (Negative) Urine Urobilinogen Normal mg/dL (Negative) Urine Leukocyte Esterase Negative /uL (Negative) Urine RBC 12 /hpf (0 - 3) Urine Microscopic WBC 2 /HPF (0-3) Urine Squamous Epithelial Cells None seen /hpf (<5) Urine Bacteria None seen /hpf (None Seen) Urine Mucus Few (None Seen) Urine Creatinine 439.90 mg/dL (30.0-125.0) H Urine Sodium < 10 mmol/L (40-220) L Urine Glucose Normal mg/dL (Normal) Blood Gas Results Test 10/05/24 13:07 Arterial Blood pH 7.491 (7.350-7.450) FiO2 % 21.0 Labs and/or images reviewed: Labs reviewed by me, Image(s) reviewed by me Assessment/Plan Assessment/Plan Acute headache status post blunt injury possibly secondary to concussion injury: CT head negative, MRI brain negative Acute bilateral community-acquired pneumonia Rocephin azithromycin [place] test negative Rapid Flu test negative Plan discussed with: Patient Date of Service: Oct 06, 2024 Billing Provider: ALTAF MCPHERSON MD Common Visit Codes: [id number] INP/OBS CARE(HIGH) ALTAF MCPHERSON MD Oct 06, 2024 12:01
[2024-10-06] MEDS ORDERED: SODIUM CHLORIDE 0.9% 1,000 ML IV SCH (13:00)
[2024-10-06] MEDS: methylPREDNISolone SOD SUCC 40 MG/ML VL IV SCH (13:58)
[2024-10-06] MEDS: SODIUM CHLORIDE 0.9% 1,000 ML IV SCH (14:11)
[2024-10-07 01:00] VITALS: BP 102/62; PULSE 79; RESP 20; TEMP 97.6; O2SAT 100
[2024-10-07] MEDS ORDERED: AZIT500T66 PO (08:23)
--- NOTE | 2024-10-07 08:24 | DVHPN2 ---
Reviewed: Care Plan, H&P, Labs, Medications, Previous Orders, Radiology Changes from previous H/P or p: No Changes Eyes: No Pain, No Vision change, No Conjunctivae inflammation, No Eyelid inflammation, No Other, No Redness ENT: No Ear pain, No Ear discharge, No Nose pain, No Nose discharge, No Nose congestion, No Mouth pain, No Mouth swelling, No Throat pain, No Throat swelling, No Other Cardiovascular: No Chest Pain, No Palpitations, No Orthopnea, No Paroxysmal Noc. Dyspnea, No Edema, No Lt Headedness, No Other Respiratory: Cough; No Dry; Shortness of breath; No SOB with excertion, No Wheezing, No Hemoptysis, No Pleuritic Pain, No Sputum, No Other Gastrointestinal: No Nausea, No Vomiting, No Abdominal Pain, No Diarrhea, No Constipation, No Melena, No Hematochezia, No Other Genitourinary: No Dysuria, No Frequency, No Incontinence, No Hematuria, No Retention, No Other Musculoskeletal: No other, No neck pain, No shoulder pain, No arm pain, No back pain, No hand pain, No leg pain, No foot pain Skin: No Rash, No Lesions, No Jaundice, No Bruising, No Other Objective Vitals Vital Signs Date Time Temp Pulse Resp B/P (MAP) Pulse Ox O2 Delivery O2 Flow Rate FiO2 10/07/24 01:00 97.6 79 20 102/62 (75) 100 97.6 10/06/24 21:51 Nasal Cannula* 2 28 Intake/Output Intake and Output 10/07/24 07:00 Intake Total 3150 ml Balance 3150 ml Intake Oral 860 ml IV Total 2290 ml # Voids 3 # Bowel Movements 2 Medications Current Medications Medications Dose Ordered Sig/Capri Route Start Time Stop Time Status Last Admin Dose Admin Ondansetron HCl 4 mg Q4HP PRN IV 10/05/24 12:45 Docusate Sodium 100 mg BIDPRN PRN PO 10/05/24 12:45 Morphine Sulfate 2 mg Q4HPRN PRN IV 10/05/24 12:45 Nitroglycerin 0.4 mg Q5MINP PRN SL 10/05/24 12:45 Methylprednisolone Sodium Succinate 40 mg Q8HR IV 10/05/24 22:00 10/07/24 05:48 40 MG Pantoprazole Sodium 40 mg DAILY IV 10/06/24 10:00 10/06/24 08:55 40 MG Ceftriaxone Sodium 50 ml @ 100 mls/hr DAILY@09 IV 10/06/24 09:00 10/06/24 08:55 100 MLS/HR Azithromycin 250 ml @ 125 mls/hr DAILY IV 10/06/24 10:00 10/06/24 10:22 125 MLS/HR Sodium Chloride 1,000 ml @ 150 mls/hr Q6H40M IV 10/06/24 13:00 10/07/24 07:10 150 MLS/HR Laboratory Results Laboratory Tests 10/06/24 05:32 Urinalysis Test 10/05/24 08:45 Urine Color Yellow (Yellow) Urine Clarity Clear (Clear) Urine pH 6.0 (5.0-9.0) Urine Specific [place] 1.034 (1.001-1.035) Urine Protein 1+ (Negative) H Urine Ketones 1+ (Negative) H Urine Blood 1+ /uL (Negative) H Urine Nitrite Negative (Negative) Urine Bilirubin Negative (Negative) Urine Urobilinogen Normal mg/dL (Negative) Urine Leukocyte Esterase Negative /uL (Negative) Urine RBC 12 /hpf (0 - 3) Urine Microscopic WBC 2 /HPF (0-3) Urine Squamous Epithelial Cells None seen /hpf (<5) Urine Bacteria None seen /hpf (None Seen) Urine Mucus Few (None Seen) Urine Creatinine 439.90 mg/dL (30.0-125.0) H Urine Sodium < 10 mmol/L (40-220) L Urine Glucose Normal mg/dL (Normal) Labs and/or images reviewed: Labs reviewed by me, Image(s) reviewed by me Assessment/Plan Assessment/Plan Acute headache status post blunt injury possibly secondary to concussion injury: CT head negative, MRI brain negative Acute bilateral community-acquired pneumonia Rocephin azithromycin Isabelle test negative Rapid Flu test negative Pt Feels better and wants to go home JENNIFER Ulrich at bedside Plan discussed with: Patient My Orders Orders - ALTAF MCPHERSON MD Procedure Category Date Status Time Regular Diet DIET 10/06/24 Transmitted Lunch Sodium Chloride 0.9% PHA 10/06/24 In Process 13:00 Date of Service: Oct 07, 2024 Billing Provider: ALTAF MCPHERSON MD Common Visit Codes: [id number] INP/OBS CARE(HIGH) ALTAF MCPHERSON MD Oct 07, 2024 08:24
--- NOTE | 2024-10-07 08:27 | DVHDS2 ---
Discharge Summary Date of Admission Oct 05, 2024 at 12:32 Date of Discharge: Oct 07, 2024 Admitting Diagnosis Headache following blunt trauma Wounds: None Labs/Diagnostic Data: Laboratory Results Test 10/06/24 05:32 10/05/24 17:35 10/05/24 13:07 10/05/24 12:13 White Blood Count 5.9 10^3/uL (4.4-10.8) Red Blood Count 4.24 10^6/uL (4.5-5.90) Hemoglobin 13.9 g/dL (13.5-17.5) Hematocrit 38.6 % (41.0-53.0) Mean Corpuscular Volume 91.0 fL (80.0-100.0) Mean Corpuscular Hemoglobin 32.9 pg (28.0-32.0) Mean Corpuscular Hemoglobin Concent 36.2 g/dL (32.0-36.0) Red Cell Distribution Width 12.9 % (11.8-14.3) Platelet Count 149 10^3/uL (140-450) Mean Platelet Volume 9.5 fL (6.9-10.8) Neutrophils (%) (Auto) 85.6 % (37.0-80.0) Lymphocytes (%) (Auto) 8.0 % (10.0-50.0) Monocytes (%) (Auto) 6.3 % (0.0-12.0) Eosinophils (%) (Auto) 0.1 % (0.0-7.0) Basophils (%) (Auto) 0.0 % (0.0-2.0) Neutrophils # (Auto) 5.0 10 ^3/uL (1.6-8.6) Lymphocytes # (Auto) 0.5 10 ^3/uL (0.4-5.4) Monocytes # (Auto) 0.4 10 ^3/uL (0-1.3) Eosinophils # (Auto) 0 10 ^3/uL (0-0.8) Basophils # (Auto) 0 10 ^3/uL (0-0.2) Nucleated Red Blood Cells 0.0 % Sodium Level 138 mmol/L (136-145) Potassium Level 3.9 mmol/L (3.5-5.1) Chloride Level 101 mmol/L (98-107) Carbon Dioxide Level 28 mmol/L (20-31) Anion Gap 9 (5-15) Blood Urea Nitrogen 21 mg/dL (9-23) Creatinine 1.12 mg/dL (0.700-1.30) Glomerular Filtration Rate Calc 94 mL/min (>90) BUN/Creatinine Ratio 18.8 (10.0-20.0) Serum Glucose 150 mg/dL (74-106) Calcium Level 8.9 mg/dL (8.7-10.4) Total Bilirubin 0.6 mg/dL (0.2-1.0) Direct Bilirubin 0.2 mg/dL (<0.3) Aspartate Amino Transferase (AST) 14 U/L (13-40) Alanine Aminotransferase (ALT) < 9 U/L (7-40) Alkaline Phosphatase 66 U/L (46-116) Total Protein 6.8 g/dL (5.7-8.2) Albumin 4.3 g/dL (3.2-4.8) Influenza Type A Antigen Negative (Negative) Influenza Type B Antigen Negative (Negative) SARS-CoV-2 Antigen (Rapid) Negative (NEGATIVE) Blood Gas Specimen Type Arterial Blood Gas Sample Site Left radial Blood Gas Patient Temperature 37.0 Arterial Blood Date Drawn [id number] Arterial Blood pH 7.491 (7.350-7.450) Arterial Blood Partial Pressure CO2 32.0 mmHg (35.0-48.0) Arterial Blood Partial Pressure O2 69.2 mmHg (83.0-108.0) Arterial Blood HCO3 23.9 mmol/L (21.0-28.0) Arterial Blood Oxygen Saturation 94.1 % (94.0-98.0) Arterial Blood Base Excess 1.4 mmol/L (-2.0-3.0) Arterial Blood Oxyhemoglobin 92.7 % (94.0-98.0) Arterial Blood Carboxyhemoglobin 0.9 % (0.5-1.5) Arterial Blood Methemoglobin 0.6 % (0.0-1.5) Atilio Test Yes Blood Gas Total Hemoglobin 15.30 g/dL (13.5-17.5) Blood Gas Modality Room air FiO2 % 21.0 Blood Gas Comments D-Dimer, Quantitative 1.02 mg/L FEU (0.0-0.49) Test 10/05/24 08:45 Urine Color Yellow (Yellow) Urine Clarity Clear (Clear) Urine pH 6.0 (5.0-9.0) Urine Specific [place] 1.034 (1.001-1.035) Urine Protein 1+ (Negative) Urine Ketones 1+ (Negative) Urine Blood 1+ /uL (Negative) Urine Nitrite Negative (Negative) Urine Bilirubin Negative (Negative) Urine Urobilinogen Normal mg/dL (Negative) Urine Leukocyte Esterase Negative /uL (Negative) Urine RBC 12 /hpf (0 - 3) Urine Microscopic WBC 2 /HPF (0-3) Urine Squamous Epithelial Cells None seen /hpf (<5) Urine Bacteria None seen /hpf (None Seen) Urine Mucus Few (None Seen) Urine Creatinine 439.90 mg/dL (30.0-125.0) Urine Sodium < 10 mmol/L (40-220) Urine Glucose Normal mg/dL (Normal) Other Laboratory Tests 10/06/24 05:32 Brief Hx & Hospital Course: Patient complained of headache after blunt trauma by hitting his head with the parr of truck. No nausea vomiting or blurry vision or slurry speech ambulating well CT head negative MRI brain negative chest x-ray showed possible bilateral community-acquired pneumonia treated with Rocephin azithromycin Isabelle test negative flu test negative patient is afebrile and has no headache at the time of discharge. Neurology consult pending patient is ambulating and on room air discharged home on azithromycin for pneumonia. He does not want any pain medication Consults/Reason for consult Neurology consult Operations or Procedures CT head MRI brain Condition at Discharge: Fair Final Diagnosis/Problems List Acute headache status post blunt injury possibly secondary to concussion injury: CT head negative, MRI brain negative Acute bilateral community-acquired pneumonia Rocephin azithromycin Isabelle test negative Rapid Flu test negative Discharge Disposition: Home Discharge Instruct/Medications Diet: Regular Activity: Light activity Follow Up/Referral: Follow up with the primary Dr Medications: Azithromycin 500 mg p.o. daily 7 Scheduled Azithromycin (Azithromycin), 1 TAB PO DAILY 39 (Time taken for discharge summary 39 minutes) Discharge Statement: "Patient was advised to return to the ER or call 911 if any headaches, dizziness, shortness of breath, chest pain, abdominal pain, bleeding, fevers, or worsening of medical condition. Patient was counseled about treatment plan, medications, possible side effects, patientverbalized understanding. All questions were answered to the best of my ability. This discharge took greater then 30 minutes in planning, reviewing documentation, counseling the patient, and discussing with other team members." ASSESSMENT ASSESSMENT Hospital Course Uneventful Assessment Acute headache status post blunt injury possibly secondary to concussion injury: CT head negative, MRI brain negative Acute bilateral community-acquired pneumonia Rocephin azithromycin Isabelle test negative Rapid Flu test negative Date of Service: Oct 07, 2024 Billing Provider: ALTAF MCPHERSON MD Common Visit Codes: [id number] DISCH DAY >30min ALTFA MCPHERSON MD Oct 07, 2024 08:27
[2024-10-07 09:00] VITALS: BP 112/66; PULSE 53; RESP 18; TEMP 97; O2SAT 94
[2024-10-07 09:28] VITALS: TEMP 36.4
[2024-10-07 10:00] VITALS: O2SAT 94
[2024-10-07 11:30] VITALS: BP 114/61; PULSE 61; RESP 17; TEMP 97.5; O2SAT 94
== END 2024-10-07 11:57 | disposition home or self-care (01) | DRG 57 ==
LOC: ER 07:42 → OVERFLOW 12:32 → CENTRAL 23:49
PROVIDERS: ADMIT Family Medicine; ATTEND Family Medicine
DX: S06.0X0A Concussion without loss of consciousness, initial encounter (principal); J96.00 Acute respiratory failure, unspecified whether with hypoxia or hypercapnia; J15.69 Pneumonia due to other Gram-negative bacteria; E87.3 Alkalosis; J15.9 Unspecified bacterial pneumonia; J45.901 Unspecified asthma with (acute) exacerbation; J98.4 Other disorders of lung; F17.210 Nicotine dependence, cigarettes, uncomplicated; Z20.822 Contact with and (suspected) exposure to COVID-19; X58.XXXA Exposure to other specified factors, initial encounter; Y93.89 Activity, other specified; Y92.89 Other specified places as the place of occurrence of the external cause; Y99.8 Other external cause status; J20.8 Acute bronchitis due to other specified organisms
CPT/HCPCS: 36415; 36600; 70450; 70551; 71045; 71275; 80048; 80053; 80076; 81001; 82570; 82805; 84300; 85025; 85379; 87426; 87804; 94640; 96365; 96375; 99291; 99292; G0378; J2470